=== PATIENT | male | born 1965 | race Caucasian/White ===

== ENCOUNTER 2020-06-15 15:02 | Emergency (ER) | payer OTHER ==
[~2020-06-15] VITALS: Ht 170.2 cm; Wt 95.4 kg
[2020-06-15] MEDS ORDERED: ONDANSETRON PF 4 MG/2 ML VIAL. IVP ONE (15:30)
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
--- NOTE | 2020-06-15 15:51 | EKG ---
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
--- NOTE | 2020-06-15 15:54 | RAD ---
CHEST AP ONLY History: Reason: dizzy / Spl. Instructions: / History: Comparison: None. Findings: No consolidation or pleural effusion. Normal heart size. No pneumothorax. Right distal clavicular irregularity likely related to prior trauma. No acute osseous abnormality. Advanced bilateral glenohumeral DJD. Impression: 1. No acute cardiopulmonary process. Electronically signed by: Karthik Blandon DO (06/15/2020 3:51 PM) [facility]
[2020-06-15 16:02] LABS: BASO % 0 % (0-3); EOS # 0.1 x10^3/uL (0.0-0.7); EOS % 1 % (0-3); HEMATOCRIT 47.2 % (39.0-53.0); HEMOGLOBIN 16.4 g/dL (13.0-17.5); LYMPH # 1.1 x10^3/uL (1.0-4.8); LYMPH % 11 % (24-48); MEAN CORPUSCULAR HEMOGLOBIN 29 pg (25-35); MEAN CORPUSCULAR HGB CONC 35 g/dL (31-37); MEAN CORPUSCULAR VOLUME 83 fL (79-100); MONO # 0.5 x10^3/uL (0.0-1.1); MONO % 6 % (0-9); NEUT # 8.1 x10^3uL (1.8-7.7); NEUT % 82 % (31-73); PLATELET COUNT 227 x10^3/uL (140-400); RED CELL DISTRIBUTION WIDTH 14.3 % (11.5-14.5); WHITE BLOOD COUNT 9.9 x10^3/uL (4.0-11.0)
[2020-06-15 16:15] LABS: ALBUMIN 3.9 g/dL (3.4-5.0); CALCIUM 9.9 mg/dL (8.5-10.1); CREATININE 1.3 mg/dL (0.7-1.3); GFR 56.9; POTASSIUM 3.3 mmol/L (3.5-5.1); TOTAL BILIRUBIN 0.6 mg/dL (0.2-1.0); TOTAL PROTEIN 7.9 g/dL (6.4-8.2)
[2020-06-15] MEDS ORDERED: ONDA4TAB12 PO (17:29)
[2020-06-15] MEDS ORDERED: MECLIZINE 12.5 MG TABLET. PO ONE (17:30)
[2020-06-15] MEDS ORDERED: IV RINGERS SOLUTION,LACTATED 1,000 ML IV ONE (18:15)
[2020-06-15] MEDS ORDERED: methylPREDNISolone SOD SUCC PF 40 MG/ML VIAL. IV ONE (18:15)
[2020-06-15] MEDS ORDERED: POTASSIUM CHLORIDE 20 MEQ TABLET.ER. PO ONE (18:15)
--- NOTE | 2020-06-15 19:09 | RAD ---
CT head and cervical spine without contrast History: Dizziness, no improvement with medication Technique: Noncontrast CT imaging was performed of the head and cervical spine. Multiplanar reconstruction images are submitted. Exposure: One or more of the following individualized dose reduction techniques were utilized for this examination: 1. Automated exposure control 2. Adjustment of the mA and/or kV according to patient size 3. Use of iterative reconstruction technique. Head CT Comparison: None Findings: There is some motion degradation. No convincing acute extra-axial or parenchymal hemorrhage is identified. There is no significant intra-axial mass effect, midline shift, or extra-axial fluid collection. The crowe-white differentiation of the major vascular territories is preserved. The ventricles, sulci, and cisterns are within normal limits in size and configuration. The mastoid air cells and the visualized paranasal sinuses are aerated. There is no significant focal calvarial abnormality. Impression: 1. Allowing for motion, no convincing acute intracranial abnormality is identified. Cervical spine CT Comparison: None Findings: No acute cervical spine fracture is identified. Vertebral body stature and AP alignment are within normal limits. Atlanto-axial distance is within normal limits. There is appropriate alignment of lateral masses of C1 relative to C2. Occipital condylar-C1 relationship is maintained. There is moderate degenerative disc disease C5-6. No significant cervical spinal stenosis is identified of the somewhat atrophic exam. Uncovertebral degenerative change and facet into change contributes to moderate right and mild left C3-5-6 neural foramina compromise. There is mild levoscoliosis of the cervical spine. Impression: 1. No acute cervical spine fracture is identified. 2. There is C5-C6 degenerative disc disease and spondylosis, also right greater than left C5-6 neural foramina compromise due to facet and uncovertebral degenerative change. Electronically signed by: Evan Mckeon MD (06/15/2020 7:06 PM) [facility]
[2020-06-15 20:13] LABS: CLARITY,URINE CLEAR; COLOR,URINE YELLOW
[2020-06-15 20:14] LABS: BILIRUBIN,URINE NEG (NEG); GLUCOSE,URINE 100 mg/dL (NEG); NITRITE,URINE NEG (NEG); UROBILINOGEN,URINE 0.2 mg/dL (0.2 mg/dL)
[2020-06-15 20:17] LABS: BARBITURATES NEG (NEG); BENZODIAZEPINES NEG (NEG); CANNABINOIDS NEG (NEG); COCAINE NEG (NEG); METHADONE NEG (NEG); OPIATES POS (NEG); PHENCYCLIDINE NEG (NEG)
[2020-06-15 20:18] LABS: RBC,URINE RARE /HPF (0-2)
[2020-06-15 20:19] LABS: BACTERIA,URINE FEW /HPF (0-FEW); WBC,URINE RARE /HPF (0-4)
[2020-06-15 20:23] LABS: AMPHETAMINE/METHAMPHETAMINE NEG (NEG)
[2020-06-15 20:28] VITALS: BP 150/86
== END 2020-06-15 20:32 | disposition home or self-care (01) ==
LOC: ER 15:02
DX: R42 Dizziness and giddiness (principal); R11.2 Nausea with vomiting, unspecified; M54.5 Low back pain; H91.90 Unspecified hearing loss, unspecified ear
CPT/HCPCS: 36415; 70450; 71045; 72125; 80053; 80307; 81001; 84484; 85025; 86140; 93005; 96361; 96374; 96375; 99285; J2405; J2920; J7120; J8597